=== PATIENT | female | born 1995 | race Caucasian/White ===

== ENCOUNTER 2023-04-19 14:36 | Emergency (ER) | payer OTHER ==
[~2023-04-19] VITALS: Ht 175.3 cm; Wt 105.9 kg
[2023-04-19 15:48] LABS: BASO % 0.3 % (0.0-1.0); EOS % 0.6 % (0.0-3.0); HEMATOCRIT 30.2 % (36.0-47.0); HEMOGLOBIN 8.7 g/dl (12.0-15.5); LYMPH # 1.9 10^3/uL (1.5-5.0); LYMPH % 29.4 % (24.0-44.0); MEAN CORPUSCULAR HEMOGLOBIN 19.5 pg (27.0-33.0); MEAN CORPUSCULAR HGB CONC 28.8 g/dl (32.0-36.5); MEAN CORPUSCULAR VOLUME 67.7 fl (80.0-96.0); MONO # 0.4 10^3/uL (0.0-0.8); MONO % 5.4 % (2.0-8.0); NEUTROPHILS # 4.2 10^3/uL (1.5-8.5); NEUTROPHILS % 63.8 % (36.0-66.0); PLATELET COUNT, AUTOMATED 276 10^3/uL (150-450); RED BLOOD COUNT 4.46 10^6/uL (4.00-5.40); WHITE BLOOD COUNT 6.5 10^3/uL (4.0-10.0)
[2023-04-19 16:12] LABS: BLOOD UREA NITROGEN 9 MG/DL (9-23); CALCIUM LEVEL 10.1 MG/DL (8.5-10.1); CARBON DIOXIDE LEVEL 26 MMOL/L (20-31); CHLORIDE LEVEL 105 MMOL/L (98-107); CREATININE FOR GFR 0.63 MG/DL (0.55-1.30); GLOMERULAR FILTRATION RATE > 60.0 (>60); GLUCOSE, FASTING 96 MG/DL (60-100); SODIUM LEVEL 138 MMOL/L (136-145)
[2023-04-19] MEDS ORDERED: NS 1,000 ML IV ONE (17:35)
[2023-04-19 20:23] LABS: BASO % 0.4 % (0.0-1.0); EOS % 0.5 % (0.0-3.0); HEMATOCRIT 26.5 % (36.0-47.0); HEMOGLOBIN 7.6 g/dl (12.0-15.5); LYMPH # 2.4 10^3/uL (1.5-5.0); LYMPH % 30.4 % (24.0-44.0); MEAN CORPUSCULAR HEMOGLOBIN 19.5 pg (27.0-33.0); MEAN CORPUSCULAR HGB CONC 28.7 g/dl (32.0-36.5); MEAN CORPUSCULAR VOLUME 68.1 fl (80.0-96.0); MONO # 0.4 10^3/uL (0.0-0.8); MONO % 5.3 % (2.0-8.0); NEUTROPHILS % 63.1 % (36.0-66.0); PLATELET COUNT, AUTOMATED 297 10^3/uL (150-450); RED BLOOD COUNT 3.89 10^6/uL (4.00-5.40); WHITE BLOOD COUNT 7.9 10^3/uL (4.0-10.0)
[2023-04-19] MEDS ORDERED: TRANEXAMIC ACID INJection 1,000 MG in NS 100 ML IV ONE (20:45)
[2023-04-19] MEDS ORDERED: [UNRECOGNIZED DRUG - CODE] PO (21:17)
[2023-04-19 21:23] VITALS: BP 116/64; TEMP 98.3; O2SAT 98
== END 2023-04-19 21:28 | disposition left against medical advice (07) ==
LOC: M ED 14:36
DX: N93.9 Abnormal uterine and vaginal bleeding, unspecified (principal); D64.9 Anemia, unspecified; N80.9 Endometriosis, unspecified; F17.200 Nicotine dependence, unspecified, uncomplicated

== ENCOUNTER 2023-05-28 09:07 | Day surgery (SDC) | payer OTHER ==
[~2023-05-28] VITALS: Ht 175.3 cm; Wt 110.1 kg
[~2023-05-28 09:07] MED LIST: TRAN650T PO; [UNRECOGNIZED DRUG - CODE] PO
[2023-05-28 10:07] LABS: HEMATOCRIT 27.1 % (36.0-47.0); HEMOGLOBIN 7.5 g/dl (12.0-15.5); MEAN CORPUSCULAR HEMOGLOBIN 18.5 pg (27.0-33.0); MEAN CORPUSCULAR HGB CONC 27.7 g/dl (32.0-36.5); MEAN CORPUSCULAR VOLUME 66.7 fl (80.0-96.0); PLATELET COUNT, AUTOMATED 315 10^3/uL (150-450); RED BLOOD COUNT 4.06 10^6/uL (4.00-5.40); WHITE BLOOD COUNT 5.4 10^3/uL (4.0-10.0)
[2023-05-28] MEDS ORDERED: LR 1,000 ML IV SCH (10:10)
[2023-05-28] MEDS ORDERED: ACETAMINOPHEN *IV* 1,000 MG IV ONE ×2 (11:00)
[2023-05-28] MEDS ORDERED: SILVER NITRATE APPLICATOR (1 = QTY 10) As Ordered ONE (13:58)
[2023-05-28] MEDS ORDERED: LIDOCAINE 1% MDV 20ML VIAL As Ordered ONE (13:58)
[2023-05-28] MEDS ORDERED: MIDAZOLAM INJ 2MG/2ML VIAL As Ordered ONE (14:34)
[2023-05-28] MEDS ORDERED: KETOROLAC 60MG 2ML VIAL As Ordered ONE (14:34)
[2023-05-28] MEDS ORDERED: propofoL 200 MG/20 ML VIAL As Ordered ONE (14:34)
[2023-05-28] MEDS ORDERED: ONDANSETRON 4MG 2ML VIAL As Ordered ONE (14:34)
[2023-05-28] MEDS ORDERED: LIDOCAINE 2% 100MG/5ML SDV (FOR ANES.) As Ordered ONE (14:34)
[2023-05-28] MEDS ORDERED: fentaNYL 100 MCG/2 ML INJECTION As Ordered ONE (14:34)
[2023-05-28] MEDS ORDERED: ACETAMINOPHEN 1000MG 100ML IV BAG As Ordered ONE (14:38)
[2023-05-28] MEDS ORDERED: HYDROMORPHONE HCL 0.5 MG/ 0.5 ML SYRINGE IV PRN (15:10)
[2023-05-28] MEDS ORDERED: ONDANSETRON 4MG 2ML VIAL IV PRN (15:10)
[2023-05-28] MEDS ORDERED: fentaNYL 100 MCG/2 ML INJECTION IV PRN (15:10)
[2023-05-28] MEDS ORDERED: oxyCODONE 5MG TAB PO PRN (15:10)
[2023-05-28 16:33] VITALS: BP 132/80; TEMP 97.1; O2SAT 100
== END 2023-05-28 16:41 | disposition home or self-care (01) ==
LOC: M SDC 09:07 → EDUNIT# 09:30 → M SDC 16:41
PROVIDERS: ATTEND Obstetrics & Gynecology
DX: N84.0 Polyp of corpus uteri (principal); N93.9 Abnormal uterine and vaginal bleeding, unspecified; F17.200 Nicotine dependence, unspecified, uncomplicated
CPT/HCPCS: 36415; 58558; 81025; 85027; 86850; 86900; 86901; 88305; J0131; J1100; J1885; J2250; J2405; J3010

== ENCOUNTER 2024-07-24 12:00 | Outpatient (CLI) | payer OTHER ==
[~2024-07-24] VITALS: Ht 175.3 cm; Wt 125.0 kg
[~2024-07-24 12:00] MED LIST changes: +ALBUTEROL SULFATE 2.5MG/0.5ML INH NEB SOLN INH PRN; +EPINEPHrine INJ 1 MG/ML 1ML AMP IM PRN; +diphenhydrAMINE 50MG/ML VIAL IV PRN; +methylPREDNISolone 125MG 2ML VIAL IV PRN
[2024-07-24] MEDS ORDERED: NS 1,000 ML IV SCH (12:30)
[2024-07-24 12:35] VITALS: BP 134/75; O2SAT 86
[2024-07-24] MEDS: FERRIC CARBOXYMALTOSE 750 MG (VIAL MATE) IN 100ML NS IV ONE (13:03)
[2024-07-24 14:30] VITALS: BP 126/72; O2SAT 99
== END 2024-07-24 14:30 ==
LOC: M INFU 12:00
PROVIDERS: ATTEND Obstetrics & Gynecology
DX: D50.9 Iron deficiency anemia, unspecified (principal)
CPT/HCPCS: 96365; J1439

== ENCOUNTER 2024-08-06 12:00 | Outpatient (CLI) | payer OTHER ==
[~2024-08-06] VITALS: Ht 175.3 cm; Wt 125.0 kg
[2024-08-06 11:15] VITALS: BP 135/81; O2SAT 98
[~2024-08-06 12:00] MED LIST changes: +NS 1,000 ML IV SCH
[2024-08-06] MEDS: FERRIC CARBOXYMALTOSE 750 MG (VIAL MATE) IN 100ML NS IV ONE (12:06)
[2024-08-06 12:35] VITALS: BP 117/71; O2SAT 98
== END 2024-08-06 13:00 ==
LOC: M INFU 12:00
PROVIDERS: ATTEND Obstetrics & Gynecology
DX: D50.9 Iron deficiency anemia, unspecified (principal)
CPT/HCPCS: 96365; J1439

== ENCOUNTER 2024-11-26 06:44 | Day surgery (SDC) | payer OTHER ==
[~2024-11-26] VITALS: Ht 175.3 cm; Wt 121.8 kg
[~2024-11-26 06:44] MED LIST changes: -ALBUTEROL SULFATE 2.5MG/0.5ML INH NEB SOLN INH PRN; -EPINEPHrine INJ 1 MG/ML 1ML AMP IM PRN; -NS 1,000 ML IV SCH; +SPIR50TA4 PO; +ceFAZolin SOD 2 GM in IV 1 EA IV ONE; -diphenhydrAMINE 50MG/ML VIAL IV PRN; -methylPREDNISolone 125MG 2ML VIAL IV PRN
[2024-11-26 07:08] LABS: BASO % 0.4 % (0.0-1.0); EOS # 0.1 10^3/uL (0.0-0.5); EOS % 1.6 % (0.0-3.0); HEMATOCRIT 40.8 % (36.0-47.0); HEMOGLOBIN 13.2 g/dl (12.0-15.5); LYMPH # 2.8 10^3/uL (1.5-5.0); LYMPH % 35.1 % (24.0-44.0); MEAN CORPUSCULAR HEMOGLOBIN 26.8 pg (27.0-33.0); MEAN CORPUSCULAR HGB CONC 32.4 g/dl (32.0-36.5); MEAN CORPUSCULAR VOLUME 82.8 fl (80.0-96.0); MONO # 0.5 10^3/uL (0.0-0.8); MONO % 6.1 % (2.0-8.0); NEUTROPHILS # 4.6 10^3/uL (1.5-8.5); NEUTROPHILS % 56.3 % (36.0-66.0); PLATELET COUNT, AUTOMATED 274 10^3/uL (150-450); RED BLOOD COUNT 4.93 10^6/uL (4.00-5.40); WHITE BLOOD COUNT 8.1 10^3/uL (4.0-10.0)
[2024-11-26] MEDS ORDERED: fentaNYL 100 MCG/2 ML INJECTION As Ordered ONE (07:14)
[2024-11-26] MEDS ORDERED: MIDAZOLAM INJ 2MG/2ML VIAL As Ordered ONE (07:14)
[2024-11-26] MEDS ORDERED: ACETAMINOPHEN 1000MG/100ML IV BAG As Ordered ONE (07:15)
[2024-11-26] MEDS ORDERED: ROCURONIUM BROMIDE 50MG/5ML VIAL As Ordered ONE (07:15)
[2024-11-26] MEDS ORDERED: propofoL 200 MG/20 ML VIAL As Ordered ONE (07:15)
[2024-11-26] MEDS ORDERED: LIDOCAINE 2% 100MG/5ML SDV (FOR ANES.) As Ordered ONE (07:15)
[2024-11-26] MEDS: LR 1,000 ML IV SCH (07:40)
[2024-11-26] MEDS: metroNIDAZOLE 500 MG in IV 1 EA IV ONE (07:40)
[2024-11-26] MEDS ORDERED: SUGAMMADEX SODIUM 500 MG/5 ML VIAL (BRIDION) As Ordered ONE (08:06)
[2024-11-26] MEDS ORDERED: ONDANSETRON 4MG 2ML VIAL As Ordered ONE (08:06)
[2024-11-26] MEDS: ceFAZolin SOD 3 GM in DEXTROSE 5% (D5W) MINI-BAG PLU 1... IV ONE (08:55)
[2024-11-26] MEDS ORDERED: HYDROmorphone HCL 2MG/ML 1ML VIAL As Ordered ONE (10:09)
[2024-11-26] MEDS: TRANEXAMIC ACID 100 MG/ML 10ML VIAL As Ordered ONE (11:00)
[2024-11-26] MEDS ORDERED: METOCLOPRAMIDE INJ 10MG/2ML VIAL IV PRN (12:00)
[2024-11-26] MEDS ORDERED: MEPERIDINE 25 MG/ML 1ML VIAL IV PRN (12:00)
[2024-11-26] MEDS ORDERED: fentaNYL 100 MCG/2 ML INJECTION IV PRN (12:00)
[2024-11-26] MEDS ORDERED: diphenhydrAMINE 50MG/ML VIAL IV PRN (12:00)
[2024-11-26] MEDS ORDERED: oxyCODONE 5MG TAB PO PRN (12:10)
[2024-11-26] MEDS: oxyCODONE 5MG TAB PO PRN (12:40)
[2024-11-26] MEDS: ONDANSETRON 4MG 2ML VIAL IV PRN (12:40)
[2024-11-26] MEDS: HYDROMORPHONE HCL 0.5 MG/ 0.5 ML SYRINGE IV PRN (12:40)
[2024-11-26] MEDS: METOCLOPRAMIDE INJ 10MG/2ML VIAL IV ONE (14:37)
[2024-11-26 15:10] VITALS: BP 131/78; TEMP 97.4; O2SAT 97
== END 2024-11-26 15:37 | disposition home or self-care (01) ==
LOC: M SDC 06:44
PROVIDERS: ATTEND Obstetrics & Gynecology
DX: N85.02 Endometrial intraepithelial neoplasia [EIN] (principal); N93.9 Abnormal uterine and vaginal bleeding, unspecified; E11.9 Type 2 diabetes mellitus without complications; Z68.39 Body mass index [BMI] 39.0-39.9, adult; Z79.899 Other long term (current) drug therapy; Z87.891 Personal history of nicotine dependence
CPT/HCPCS: 36415; 58571; 81025; 85025; 86850; 86900; 86901; 88307; A6024; J0131; J0665; J0690; J1100; J1171; J1836; J2250; J2405; J2765; J3010